=== PATIENT | female | born 1980 | race Caucasian/White ===

== ENCOUNTER 2025-01-14 08:34 | Outpatient (CLI) | payer OTHER | END 2025-01-14 08:40 | disposition home or self-care (01) | LOC: RAD 08:34 | PROVIDERS: ATTEND Orthopaedic Surgery | DX: M25.562 Pain in left knee (principal) ==

== ENCOUNTER 2025-01-27 06:40 | Outpatient (CLI) | payer OTHER ==
[2025-01-27 08:43] LABS: INR 1.0
== END 2025-01-27 06:47 | disposition home or self-care (01) ==
LOC: LAB 06:40
PROVIDERS: ATTEND Radiology Diagnostic Radiology
DX: R79.1 Abnormal coagulation profile (principal)

== ENCOUNTER 2025-01-27 06:59 | Outpatient (CLI) | payer OTHER ==
[~2025-01-27] VITALS: Ht 152.4 cm; Wt 76.7 kg
[2025-01-27 09:00] VITALS: BP 116/74; O2SAT 99
[2025-01-27 09:30] VITALS: BP 120/75; O2SAT 100
[2025-01-27 10:00] VITALS: BP 125/75; O2SAT 100
== END 2025-02-01 08:36 | disposition home or self-care (01) ==
LOC: TOM 06:59
PROVIDERS: ATTEND Orthopaedic Surgery
DX: D16.9 Benign neoplasm of bone and articular cartilage, unspecified (principal)